=== PATIENT | female | born 1960 | race Caucasian/White ===

== ENCOUNTER → 2018-06-27 10:27 | Outpatient (CLI) | payer BC, SELFPAY ==
--- NOTE | 2018-06-27 11:44 | CA_ITS ---
PROCEDURE: 2-D M-mode and color Doppler study INDICATIONS FOR THE TEST: Chest pain+ COPD Heart Murmur Tobacco Smoking+ Palpitations Fatigue Syncope Edema Hypertension+Diabetes Mellitus Rheumatic Fever SOB [place] Obesity Hyperlipidemia Family History HD Additional History ABN EKG, GERD PATIENT INFORMATION HEIGHT: 60 WEIGHT: 162 GENDER: Female B/P: 150/81 2-D/M-MODE INTERPRETATION: 2-D MEASUREMENTS OBSERVED VALUES IN CMS Right Ventricular Dimension (RVDd) 2.5 Interventricular Septum (Thickness)(IVsd) 0.9 Left Ventricular Internal Dimensions(LVIDd) 4.4 Left Ventricular Posterior Wall (Thickness)(LVPWd) 0.9 Aortic Root 2.5 Aortic Cusp Separation 1.9 Left Atrial Dimensions (LAD) 3.2 2D 1. Left atrium is normal size, left ventricle is normal size, there is no concentric left ventricular hypertrophy, visually estimated ejection fraction 55% with no regional wall motion abnormality. 2. The right atrium and right ventricle are normal size and contractility. 3. The aortic, mitral and tricuspid valvular grossly normal. 4. The pulmonic valve is poorly visualized. 5. No significant pericardial effusion noted. DOPPLER INTERROGATION: Doppler interrogation of the aortic, mitral and tricuspid valvular presence of mild mitral and tricuspid regurgitation, tricuspid regurgitation jet velocity is inadequate for calculation of the right ventricular systolic pressure, diastolic parameters are within normal range. CONCLUSION: 1. Normal left ventricular size, preserved left ventricular systolic function, visually estimated ejection fraction 55% with no regional wall motion abnormality, diastolic parameters are within normal range. 2. Mild mitral and tricuspid regurgitation 3. No significant pericardial effusion noted.
[2018-06-27 11:59] LABS: Alanine Aminotransferase 82 U/L (12-78); Albumin Level 3.9 gm/dL (3.4-5.0); Alkaline Phosphatase 97 U/L (46-116); Aspartate Amino Transferase 34 U/L (15-37); Bilirubin,Direct 0.1 mg/dL (0.0-0.2); Bilirubin,Indirect 0.3 mg/dL (0.0-0.9); Bilirubin,Total 0.4 mg/dL (0.2-1.0); Chol/HDL Ratio 4.5 (1-3.5); Cholesterol 154 mg/dL (140-200); HDL Cholesterol 34 mg/dL (29-89); LDL Cholesterol 90 mg/dL (0-130); Triglycerides 150 mg/dL (30-200); VLDL Cholesterol 30 mg/dL (0-40)
--- NOTE | 2018-06-27 12:34 | NM_ITS ---
CARDIOLITE SPECT MYOCARDIAL PERFUSION LEXISCAN, REST AND STRESS: History: Hypertension, hyperlipidemia, tobacco use, family history, palpitations and fatigue Procedure: Agent exercised on [place] protocol 6 minutes and 41 seconds, resting heart rate was 65 beats prominent resting blood pressure 124/74, with exercise maximum heart rate achieved was 1 54 bpm is greater than 85% of the maximum predicted heart rate and a blood pressure was 170/60. Test was stopped due to shortness of breath patient complained of chest pain. Patient has adequate exercise capacity achieved 7mets of workload on treadmill, the blood pressure response to exercise was adequate. Electrocardiogram: Resting echocardiogram showed sinus rhythm, with exercise there is less than 1.[address] segment depression noted from the baseline EKG. The EKG portion of the exercise Myoview is negative for ischemia. Cardiac stress and resting SPECT images: Exercise stress and resting SPECT images were obtained using technetium 99 Myoview 30.1 mCi stress and 9.9 mCi at rest. Gated SPECT further analysis of segmental wall motion and calculation of the ejection fraction also done. Cardiac stress and resting SPECT images show uniform myocardial activity without segmental perfusion abnormality, computer derived ejection fraction is over 65% with no regional wall motion abnormality, right ventricle is normal size and contractility. Conclusion: 1. The EKG portion of the exercise Myoview is negative for ischemia, patient has adequate exercise capacity achieved 7mets of workload on treadmill, the blood pressure response to exercise was adequate, there was no exercise-induced chest discomfort. 2. No scintigraphic evidence of reversible ischemia seen, computer derived ejection fraction is over 65% with no regional wall motion abnormality, right ventricle is normal size and contractility. 3. Normal exercise Myoview study.
--- NOTE | 2018-06-27 13:24 | HMH.ITSHM ---
Current Home Medications as stated by this patient Mimi Aguilar or personal banking representative. [] asa bisprolol hctz xarelto gabapentin lisinopril atorvastatin omeprazole
== END ==
PROVIDERS: Visit Provider Nurse Practitioner Family
DX: R07.9 Chest pain, unspecified (principal); E78.2 Mixed hyperlipidemia; G57.90 Unspecified mononeuropathy of unspecified lower limb; I10 Essential (primary) hypertension; I77.9 Disorder of arteries and arterioles, unspecified; R94.31 Abnormal electrocardiogram [ECG] [EKG]
CPT/HCPCS: 36415; 78452; 80061; 80076; 93017; 93306; A9502

== ENCOUNTER → 2020-11-08 13:07 | Outpatient (CLI) | payer OTHER, SELFPAY ==
[2020-11-08 14:49] LABS: Alanine Aminotransferase 34 U/L (12-78); Albumin Level 4.3 g/dl (3.5-5.0); Alkaline Phosphatase 89 U/L (38-126); Aspartate Amino Transferase 36 U/L (14-36); Bilirubin,Direct 0.2 mg/dl (0.0-0.4); Bilirubin,Indirect 0.3 mg/dL (0.0-0.9); Bilirubin,Total 0.5 mg/dl (0.2-1.3); Bilirubin,Unconjugated 0.3 mg/dL (0.0-1.1); Cholesterol 188 mg/dl (140-200); HDL Cholesterol 47 mg/dl (40-60); Triglycerides 235 mg/dl (30-150); VLDL Cholesterol 47 mg/dL (0-40)
[2020-11-08 15:00] LABS: Direct LDL Cholesterol 108.85 mg/dL (100-129)
== END ==
PROVIDERS: Visit Provider Internal Medicine
DX: E78.2 Mixed hyperlipidemia (principal); I10 Essential (primary) hypertension; G57.90 Unspecified mononeuropathy of unspecified lower limb; I77.9 Disorder of arteries and arterioles, unspecified
CPT/HCPCS: 36415; 80061; 80076

== ENCOUNTER → 2022-01-08 11:35 | Outpatient (CLI) | payer OTHER, SELFPAY ==
--- NOTE | 2022-01-08 11:51 | XR_ITS ---
FINAL REPORT CLINICAL HISTORY: dyspnea FINDINGS: CHEST TWO-VIEW Old granulomatous disease. The lungs are otherwise clear. There is no evidence of effusion or other pleural disease. The mediastinum as a normal appearance. The cardiac silhouette is unremarkable. IMPRESSION: No acute findings. Reviewed, Interpreted and Dictated by Brandon Manrique MD Transcribed by Ludin Ignacio Authenticated and [facility]
== END ==
PROVIDERS: PCP Internal Medicine; Visit Provider Internal Medicine
DX: R06.00 Dyspnea, unspecified (principal); F17.200 Nicotine dependence, unspecified, uncomplicated
CPT/HCPCS: 71046

== ENCOUNTER → 2022-01-15 07:31 | Outpatient (CLI) | payer OTHER, SELFPAY ==
[2022-01-15 08:25] VITALS: PULSE 48; PULSE 50
== END ==
LOC: RT 07:34
PROVIDERS: Visit Provider Internal Medicine
DX: R06.09 Other forms of dyspnea (principal); F17.200 Nicotine dependence, unspecified, uncomplicated
CPT/HCPCS: 94060; 94640; 94727; 94729